=== PATIENT | female | born 1995 | race Caucasian/White ===

== ENCOUNTER 2019-02-02 12:41 | Emergency (ER) | payer MEDICAID ==
[~2019-02-02] VITALS: Ht 162.6 cm; Wt 68.0 kg
[2019-02-02 12:50] VITALS: BP 118/68; Ht 162.6 cm; Wt 68.0 kg
== END 2019-02-02 13:44 | disposition home or self-care (01) ==
LOC: ED 12:41
DX: N39.0 Urinary tract infection, site not specified (principal)

== ENCOUNTER 2019-03-05 22:49 | Emergency (ER) | payer MEDICAID ==
[~2019-03-05] VITALS: Ht 162.6 cm; Wt 68.0 kg
[2019-03-05 23:50] VITALS: BP 124/72
[2019-03-06 00:34] LABS: UA SPECIFIC GRAVITY 1.025 (1.005-1.035); microscopic required? YES; urine erythrocyte 3+ (NEGATIVE)
== END 2019-03-05 23:50 | disposition home or self-care (01) ==
LOC: ED 22:49
PROVIDERS: Emergency Medicine
DX: N39.0 Urinary tract infection, site not specified (principal)
CPT/HCPCS: 87491; 87591